=== PATIENT | female | born 1995 | race Caucasian/White ===

== ENCOUNTER 2019-06-26 09:21 | Emergency (ER) | payer OTHER ==
--- NOTE | 2019-06-26 10:01 | UC ---
Lower Extremity/Ankle HPI - HPI Summary HPI Summary: Patient is 24 year old female, who present today to the urgent care with right ankle pain since yesterday. He reports that she missed a step at the porch and rolled her right ankle with pain on the outside of the ankle. There is associated swelling but no bruising noted. She is able to partially bear weight. Denies any prior injuries to the right ankle. - History of Current Complaint Stated Complaint: ANKLE INJURY Time Seen by Provider: 06/26/19 09:58 Hx Obtained From: Patient Hx Last Menstrual Period: 06/02/19 ?: No - Allergies/Home Medications Allergies/Adverse Reactions: Allergies Allergy/AdvReac Type Severity Reaction Status Date / Time No Known Allergies Allergy Verified 06/26/19 10:07 Home Medications: Home Medications Ibuprofen TAB* [Advil TAB*] 200 mg PO Q6H PRN 06/26/19 [History Confirmed ] Methylphenidate ER TAB* [Concerta ER TAB*] 34 mg PO DAILY 06/26/19 [History Confirmed 06/26/19] Norethindrone AC-Eth Estradiol [Microgestin 11/28 1-20 mg-Mcg] 1 tab PO DAILY [History Confirmed 06/26/19] PMH/Surg Hx/FS Hx/Imm Hx - Additional Past Medical History Additional PMH: Past Medical History : None Past Surgical History: [place] tooth surgery Family History : non contributory Social History : Occasional alcohol, non smoker, no drug use. Previously Healthy: Yes Review of Systems All Other Systems Reviewed And Are Negative: Yes Constitutional: Positive: Negative Skin: Positive: Negative Eyes: Positive: Negative ENT: Positive: Negative Respiratory: Positive: Negative Cardiovascular: Positive: Negative Gastrointestinal: Positive: Negative Genitourinary: Positive: Negative Motor: Positive: Negative Neurovascular: Positive: Negative Musculoskeletal: Positive: Arthralgia - right ankle, Decreased ROM - right ankle , Edema Neurological: Positive: Negative Psychological: Positive: Negative Is Patient Immunocompromised?: No Physical Exam - Summary Physical Exam Summary: Vital Signs Reviewed: Yes A+Ox3, no distress Eyes: Conjunctiva Clear ENT: Hearing grossly normal neck: supple Respiratory: Positive: No respiratory distress, No accessory muscle use Cardiovascular: skin color reflect adequate perfusion Neurological: Positive: Alert, ambulatory without difficulty Psychological: Positive: Normal Response To Family Skin: Positive: no rash, no ecchymosis Ankle/Feet examination: Ankle: Gait: antalgic gait, painful weight bearing . Inspection/palpation: There is swelling on the lateral aspect without any bruising. There is tenderness to palpation at the lateral malleolus and the medial malleolus and the ATFL. Some tenderness at the CFL. Ankle mortise appears intact. ROM: Limited and painful range of motion in all planes Strength: 5/5 with dorsiflexion, plantarflexion, inversion and eversion Special tests:Anterior drawer test is painful. Side to side test negative.Talar tilt test(inversion stress) is equal . Negative Squeeze and External Rotation tests. Feet: Insp/Palp: Feet normal to inspection . No tenderness to palpation of the foot Strength: EHL 5/5 Skin: No scars, rashes, lesions or ecchymosis. 2+ posterior tibial and dorsalis pedis pulse bilaterally. Neuro: Sensation to light touch is intact in the lower extremities bilaterally. Coordination normal. Triage Information Reviewed: Yes Vital Signs Reviewed: Yes Diagnostics - Radiology No standard instances Radiology Interpretation Completed By: Radiologist - X-ray of the right ankle: JOINT EFFUSION. NO ACUTE OSSEOUS INJURY. IF SYMPTOMS PERSIST, RECOMMEND REPEAT IMAGING. Lower Extremity Course/Dx - Course Course Of Treatment: During the visit today, we obtained x-ray of the right ankle:JOINT EFFUSION. NO ACUTE OSSEOUS INJURY. IF SYMPTOMS PERSIST, RECOMMEND REPEAT IMAGING. We discussed the findings consistent with right lateral ankle sprain and further plan. Ankle brace was given to her and exercises demonstrated Patient expressed understanding . - Differential Dx/Diagnosis Provider Diagnosis: Right ankle sprain Discharge - Sign-Out/Discharge Documenting (check all that apply): Patient Departure All imaging exams completed and their final reports reviewed: Yes - Discharge Plan Condition: Stable Disposition: HOME Patient Education Materials: Ankle Sprain (ED) Referrals: No Primary Care Phys,NOPCP [Primary Care Provider] - Lebron Padron MD [Medical Doctor] - 1 Week Additional Instructions: Start using the crutches as tolerated - progress to weightbearing as tolerated Continue to use of ankle brace Ice 15 minutes at a time, 3-4 times a day. Ibuprofen 600 mg up to 3 times a day as needed. Follow up with orthopedics within a week. Return to Urgent care / ER if symptoms get worse. - Billing Disposition and Condition Condition: STABLE Disposition: Home
[2019-06-26 10:07] VITALS: BP 115/77
== END 2019-06-26 11:18 | disposition home or self-care (01) ==
LOC: UCEAST 09:21
DX: S93.401A Sprain of unspecified ligament of right ankle, initial encounter (principal); W10.9XXA Fall (on) (from) unspecified stairs and steps, initial encounter; Y92.017 Garden or yard in single-family (private) house as the place of occurrence of the external cause
CPT/HCPCS: 99202; G0463

== ENCOUNTER 2019-10-29 13:23 | Emergency (ER) | payer OTHER ==
[2019-10-29 13:47] VITALS: BP 116/66
--- NOTE | 2019-10-29 13:53 | UC ---
Complaint Female HPI - HPI Summary HPI Summary: 24yo with 4 day history of dysuria and frequency. No fever, no back pain. Typically urinary symptoms pass for her with increase in fluids. Past hx of pyelnephritis. Last treatment for UTI at least 6 months ago; overall tend to occur when she holds her urine for overly long periods such as with travel. - History Of Current Complaint Chief Complaint: UCGU Stated Complaint: URINARY ISSUE Time Seen by Provider: 10/29/19 13:49 Hx Obtained From: Patient Hx Last Menstrual Period: 10/20/19 Onset/Duration: Gradual Onset, Lasting Days Timing: Intermittent Severity Initially: Mild Severity Currently: Moderate Pain Intensity: 3 Character: Burning, Cramping Aggravating Factor(s): Urination Associated Signs And Symptoms: Positive: Negative. Negative: Fever, Back Pain, Vaginal Bleeding/Discharge, Nausea - Risk Factors Ectopic Risk Factor: Negative Ovarian Torsion Risk Factor: Negative - Allergies/Home Medications Allergies/Adverse Reactions: Allergies Allergy/AdvReac Type Severity Reaction Status Date / Time No Known Allergies Allergy Verified 10/29/19 13:47 PMH/Surg Hx/FS Hx/Imm Hx Previously Healthy: Yes - Surgical History Surgical History: Yes Surgery Procedure, Year, and Place: wisdom teeth - Family History Known Family History: Positive: Other - GM had CA ovarian - Social History Occupation: Student Lives: With Family Alcohol Use: Occasionally Substance Use Type: None Smoking Status (MU): Never Smoked Tobacco Review of Systems All Other Systems Reviewed And Are Negative: Yes Constitutional: Positive: Negative Skin: Positive: Negative Eyes: Positive: Negative ENT: Positive: Negative Respiratory: Positive: Negative Cardiovascular: Positive: Negative Gastrointestinal: Positive: Negative Genitourinary: Positive: Dysuria, Frequency, Urgency Motor: Positive: Negative Neurovascular: Positive: Negative Musculoskeletal: Positive: Negative Neurological: Positive: Negative Psychological: Positive: Negative Is Patient Immunocompromised?: No Physical Exam Triage Information Reviewed: Yes Appearance: Well-Appearing, No Pain Distress Vital Signs: Initial Vital Signs Temp 99.2 F 10/29/19 13:44 Pulse 49 10/29/19 13:44 Resp 16 10/29/19 13:44 BP 116/66 10/29/19 13:44 Pulse Ox 100 10/29/19 13:44 ENT: Positive: Pharynx normal Neck: Positive: Supple, Nontender, No Lymphadenopathy Respiratory: Positive: Lungs clear, Normal breath sounds Cardiovascular: Positive: RRR, No Murmur Abdomen Description: Positive: Nontender, No Organomegaly, Soft. Negative: CVA Tenderness (R), CVA Tenderness (L) Complaint Female Dx - Course Course Of Treatment: macrodantin for treatment of UTI - Differential Dx/Diagnosis Differential Diagnosis/HQI/PQRI: Urinary Tract Infection Provider Diagnosis: UTI (urinary tract infection) Discharge ED - Sign-Out/Discharge Documenting (check all that apply): Patient Departure All imaging exams completed and their final reports reviewed: No Studies - Discharge Plan Condition: Stable Disposition: HOME Prescriptions: Nitrofurantoin Monohyd/M-Cryst [Macrobid 100 mg Capsule] 100 mg PO BID #10 cap Patient Education Materials: Urinary Tract Infection in Women (ED) Referrals: No Primary Care Phys,NOPCP [Primary Care Provider] - Additional Instructions: Continue high intake of fluids. Begin macrodantin for treatment of infection; you will receive a call if a change of antibiotic is needed based on the culture report. - Billing Disposition and Condition Condition: STABLE Disposition: Home
== END 2019-10-29 14:27 | disposition home or self-care (01) ==
LOC: UCEAST 13:23
DX: N39.0 Urinary tract infection, site not specified (principal)
CPT/HCPCS: 81003; 84702; 87077; 87086; 99212; G0463